=== PATIENT | female | born 1950 | race Two or more races ===

== ENCOUNTER 2017-10-26 15:17 | Emergency (ER) | payer MEDICARE, MEDICAID ==
[~2017-10-26] VITALS: Ht 142.2 cm; Wt 66.0 kg
[2017-10-26 15:52] VITALS: BP 136/62
[2017-10-26] MEDS ORDERED: ACETAMINOPHEN 325MG TABLET PO ONE (18:15)
[2017-10-26] MEDS ORDERED: OSELTAMIVIR 75MG CAPSULE PO ONE (18:45)
== END 2017-10-26 19:02 | disposition home or self-care (01) ==
LOC: ER 16:47
DX: J18.9 Pneumonia, unspecified organism (principal); H66.91 Otitis media, unspecified, right ear; J98.11 Atelectasis
CPT/HCPCS: 71045; 99283